=== PATIENT | female | born 1985 | race Caucasian/White ===

== ENCOUNTER 2019-02-13 20:42 | Emergency (ER) | payer SELFPAY ==
[~2019-02-13] VITALS: Ht 157.5 cm; Wt 75.0 kg
[~2019-02-13 20:42] MED LIST: ALBUTEROL0.09 MG/A1 IH; BACTRIM DS 8001 TAB PO; CIPRO 500MG TA500 MG PO; LORTAB 5/500 501 TAB PO; NO HOME MEDICATIONS; NORCO 325 MG-51 TAB PO; PERCOCET 325 MG1 TA2 PO; PHENERGAN 25 TA25 MG PO; PROMETHAZINE12.5 M5 PO; PYRIDIUM200 M1 PO
[2019-02-13 20:44] VITALS: TEMP 97.3
[2019-02-13] MEDS ORDERED: PRILOSEC 20MG20 MG PO (21:58)
[2019-02-13 22:33] LABS: COLLECTION METHOD CLEAN CATCH
[2019-02-13 22:37] LABS: BASO # 0.1 (0.0-0.2); BASO % 0.6 % (0.0-2.0); EOS # 0.1 (0.0-0.7); EOS % 0.9 % (0-4.0); GRAN # 6.7 (1.4-6.5); GRAN % 65.2 % (42.2-75.2); HEMOGLOBIN 13.2 g/dl (12.5-16.0); LYMPH # 2.8 (1.2-3.4); LYMPH % 27.2 % (20.0-51.0); MEAN CELL VOLUME 87 fl (80.0-100.0); MEAN CORPUSCULAR HEMOGLOBIN 29 pg (27.0-31.0); MEAN CORPUSCULAR HGB CONC 34 g/dl (33.0-37.0); MEAN PLATELET VOLUME 10.1 fl (7.4-10.4); MONO # 0.6 (0.1-0.6); MONO % 5.9 % (1.7-9.3); PLATELET COUNT 236 K/mm3 (130-400); RED BLOOD COUNT 4.51 M/mm3 (4.10-5.30); REDCELL DISTRIBUTION WIDTH-CV 12.3 % (11.5-14.5)
[2019-02-13 22:46] LABS: MUCOUS Present /lpf; PH 7 (5-8); SQUAMOUS EPITHELIAL 0-2 /hpf; URINE APPEARANCE Clear; URINE BACTERIA Rare /hpf; URINE BILIRUBIN Negative (NEGATIVE); URINE BLOOD Negative (NEGATIVE); URINE COLOR Yellow; URINE GLUCOSE Negative (NEGATIVE); URINE KETONE Trace (NEGATIVE); URINE LEUKOCYTE ESTERASE Negative (NEGATIVE); URINE NITRATE Negative (NEGATIVE); URINE PROTEIN(semi-quant) Negative (NEGATIVE); URINE UROBILINOGEN Negative (NEGATIVE)
[2019-02-13 22:48] LABS: ALANINE AMINOTRANSFERASE 20 U/L (9-52); ALBUMIN 4.4 gm/dL (3.5-5.0); ALKALINE PHOSPHATASE 51 U/L (50-136); ANION GAP 7 mmol/L (7-16); AST,SGOT 18 U/L (15-37); BILIRUBIN,TOTAL 0.3 mg/dL (0.0-1.0); BLOOD UREA NITROGEN 16 mg/dL (7-17); CALCIUM 8.7 mg/dL (8.4-10.2); CARBON DIOXIDE 23 mmol/L (22-30); CHLORIDE 109 mmol/L (98-107); CREATININE, serum 0.67 (0.52-1.25); GLUCOSE 89 mg/dL (74-106); POTASSIUM 3.6 mmol/L (3.4-5.0); SODIUM 140 mmol/L (137-145); TOTAL PROTEIN 7.7 gm/dL (6.4-8.2)
[2019-02-13 23:00] LABS: TROPONIN-I < 0.012 ng/mL (0.000-0.035)
[2019-02-13 23:25] VITALS: BP 121/65
[2019-02-13 23:35] VITALS: PULSE 56
== END 2019-02-13 23:35 | disposition home or self-care (01) ==
LOC: COL.ER 20:42
PROVIDERS: Physician Assistant
DX: R07.89 Other chest pain (principal); Z87.891 Personal history of nicotine dependence
CPT/HCPCS: J1885

== ENCOUNTER 2019-10-02 05:51 | Emergency (ER) | payer MEDICAID ==
[~2019-10-02] VITALS: Ht 157.5 cm; Wt 72.7 kg
[~2019-10-02 05:51] MED LIST changes: +PRILOSEC 20MG20 MG PO
[2019-10-02 05:58] VITALS: TEMP 98.1
[2019-10-02 06:51] LABS: COLLECTION METHOD CATHETER
[2019-10-02 07:04] LABS: PH 6 (5-8); SQUAMOUS EPITHELIAL None Seen /hpf; URINE APPEARANCE Clear; URINE BACTERIA None Seen /hpf; URINE BILIRUBIN Negative (NEGATIVE); URINE BLOOD 1+ (NEGATIVE); URINE COLOR Straw; URINE GLUCOSE Negative (NEGATIVE); URINE KETONE Negative (NEGATIVE); URINE LEUKOCYTE ESTERASE Negative (NEGATIVE); URINE NITRATE Negative (NEGATIVE); URINE PROTEIN(semi-quant) Negative (NEGATIVE); URINE RBC 0-2 /hpf; URINE UROBILINOGEN Negative (NEGATIVE)
[2019-10-02 08:05] LABS: BASO # 0.1 (0.0-0.2); BASO % 0.5 % (0.0-2.0); EOS # 0.2 (0.0-0.7); EOS % 1.4 % (0-4.0); GRAN # 8.8 (1.4-6.5); GRAN % 75.2 % (42.2-75.2); HEMOGLOBIN 13.8 g/dl (12.5-16.0); MEAN CELL VOLUME 86 fl (80.0-100.0); MEAN CORPUSCULAR HEMOGLOBIN 30 pg (27.0-31.0); MEAN CORPUSCULAR HGB CONC 35 g/dl (33.0-37.0); MEAN PLATELET VOLUME 9.8 fl (7.4-10.4); MONO # 0.7 (0.1-0.6); MONO % 5.6 % (1.7-9.3); PLATELET COUNT 188 K/mm3 (130-400); RED BLOOD COUNT 4.65 M/mm3 (4.10-5.30); REDCELL DISTRIBUTION WIDTH-CV 12.5 % (11.5-14.5)
[2019-10-02 11:28] VITALS: BP 132/77; PULSE 74
== END 2019-10-02 11:31 | disposition home or self-care (01) ==
LOC: COL.ER 05:51
PROVIDERS: Emergency Medicine
DX: O20.0 Threatened abortion (principal); Z3A.00 Weeks of gestation of pregnancy not specified

== ENCOUNTER 2020-10-31 05:53 | Inpatient (IN) | payer MEDICAID ==
[2020-10-31] VITALS (26 sets, daily range): BP systolic 93–141; BP diastolic 50–83; PULSE 49–85; TEMP 97.4–98.8
[~2020-10-31] VITALS: Ht 157.5 cm; Wt 90.9 kg
--- NOTE | 2020-10-31 06:00 | NUR ---
Patient presents to labor and delivery at 0600 am. 0611 This nurse assumed care of patient. Assessment done.
[2020-10-31] MEDS ORDERED: UNISOM25 MG (06:35)
[2020-10-31] MEDS ORDERED: PRENATAL TABLET PO (06:35)
[2020-10-31] MEDS ORDERED: OSCAL 500 TAB500 MG (06:36)
--- NOTE | 2020-10-31 06:45 | NUR ---
Pitocin started at 2 venancio units as ordered and per policy.
--- NOTE | 2020-10-31 07:04 | NUR ---
Decel noted down in the eightys to nintys for a minute and a half. Repositioned side to side. Back up to 120s.
[2020-10-31 07:22] LABS: BASO # 0.1 (0.0-0.2); BASO % 0.6 % (0.0-2.0); EOS # 0.1 (0.0-0.7); EOS % 0.7 % (0-4.0); GRAN # 5.7 (1.4-6.5); GRAN % 65.2 % (42.2-75.2); HEMOGLOBIN 12.5 g/dl (12.5-16.0); LYMPH % 22.9 % (20.0-51.0); MEAN CELL VOLUME 85 fl (80.0-100.0); MEAN CORPUSCULAR HEMOGLOBIN 29 pg (27.0-31.0); MEAN CORPUSCULAR HGB CONC 34 g/dl (33.0-37.0); MEAN PLATELET VOLUME 10.9 fl (7.4-10.4); MONO # 0.9 (0.1-0.6); MONO % 10.1 % (1.7-9.3); PLATELET COUNT 194 K/mm3 (130-400); RED BLOOD COUNT 4.26 M/mm3 (4.10-5.30)
[2020-10-31 07:29] LABS: HEMATOCRIT 36.3 % (37.0-47.0)
--- NOTE | 2020-10-31 08:45 | NUR ---
Dr. Remy here, vag exam done. Reports dilated to three, ninty percent effaced. States not to go up on pitocin.
--- NOTE | 2020-10-31 09:40 | NUR ---
States cant do this any more. Request epidural. Let patient know that it would be after the patient in the other room. States can I have some stadol. Dr. Remy called. See physicians notification notes. Stadol 1 mg iv given as ordered.
--- NOTE | 2020-10-31 10:15 | NUR ---
Rests in bed, alert. Anesthesia here, visits with patient. 1032 Test dose given by [facility] anesthesia. See notes please.
--- NOTE | 2020-10-31 10:35 | NUR ---
Lies down after epidural. 1038 Patient complete with vag check with bag of fluid noted. Dr. Remy called to room. 1040 Dr. Remy here, prepped for delivery. 1047 Spontaneous delivery of baby boy by Dr. Remy. 1154 Spontaneous delivery of placenta by Dr. Remy. Pitocin started at 333ccs an hour as ordered and per policy.
--- NOTE | 2020-10-31 11:10 | NUR ---
Rests in bed, alert. Holds baby lovingly. Denies any pain at this time.
--- NOTE | 2020-10-31 11:40 | NUR ---
Rests in bed, alert. baby.
--- NOTE | 2020-10-31 13:40 | NUR ---
Rests in bed, alert. Eating meal. Denies any discomfort or pain at this time.
--- NOTE | 2020-10-31 14:30 | NUR ---
Ambulates to the bathroom. Voids large amount of clear yellow urine. Karina-care done by patient. Ambulates to room 208. Oriented to room.
--- NOTE | 2020-10-31 17:00 | NUR ---
Rests in bed, alert. Denies any pain at this time.
[2020-11-01 03:50] VITALS: BP 104/70; PULSE 60; TEMP 97.9
[2020-11-01 07:00] VITALS: BP 121/69; PULSE 65; TEMP 97.6
[2020-11-01] MEDS ORDERED: IBU600 MG PO (08:53)
--- NOTE | 2020-11-01 09:58 | NUR ---
Initial visit; Parents thanked for offering congratulations for the of their son. thanked family for choosing [facility].
[2020-11-01 11:30] VITALS: BP 118/58; PULSE 66; TEMP 98.2
== END 2020-11-01 13:30 | disposition home or self-care (01) | DRG 807 ==
LOC: LDR 05:53 → OB 14:06
PROVIDERS: ADMIT Obstetrics & Gynecology
PROC: 10E0XZZ Delivery of Products of Conception, External Approach (ICD-10-PCS; principal; 2020-10-31)
DX: O35.1XX0 Maternal care for (suspected) chromosomal abnormality in fetus, not applicable or unspecified (principal); Z37.0 Single live birth; Z3A.39 39 weeks gestation of pregnancy; Z86.16 Personal history of COVID-19
CPT/HCPCS: J0595; J2590; J2795; J7120